=== PATIENT | female | born 1995 | race American Indian/Alaskan Native ===

== ENCOUNTER 2019-05-08 08:28 | Inpatient (IN) | payer MEDICAID ==
[2019-05-08] MEDS ORDERED: SUBLIMAZE IV ONE (14:52)
[2019-05-08] MEDS ORDERED: LACTATED RINGERS 1,000 ML IV ONE (14:52)
[2019-05-08] MEDS ORDERED: PITOCin/NS 20 UNIT/1000ML DRIP 20 UNITS/1,000 ML BAG IV SCH (15:00)
[2019-05-08] MEDS: LACTATED RINGERS 1,000 ML IV SCH ×2 (15:25→17:11)
[2019-05-08 15:29] LABS: Hematocrit 38.2 % (30.3-42.9); Hemoglobin 12.8 gm/dl (10.1-14.3); Mean Corpuscular HGB Conc 34 % (30-34); Mean Corpuscular Volume 84 fl (79-97); Platelet Count 186 K/mm3 (140-440); Red Blood Count 4.55 M/mm3 (3.65-5.03); Red Cell Distribution Width 13.8 % (13.2-15.2)
[2019-05-08] MEDS ORDERED: MARCAINE 0.25% INFILTRATI ONE (18:34)
[2019-05-08] MEDS ORDERED: PITOCin/NS 30 UNIT/500ML 30,000 MILLIUNITS/500 ML BAG IV ONE (19:21)
[2019-05-08] MEDS ORDERED: NARCAN 2 MG/2 ML IV PRN (19:24)
--- NOTE | 2019-05-08 19:25 | Anesthesia Consultation ---
Anesthesia Consult and Med Hx - Airway Anesthetic Teeth Evaluation: Good ROM Head & Neck: Adequate Mental/Hyoid Distance: Adequate Mallampati Class: Class I Intubation Access Assessment: Good - Pulmonary Exam CTA: Yes - Cardiac Exam Cardiac Exam: RRR - Pre-Operative Health Status ASA Pre-Surgery Classification: ASA2 Proposed Anesthetic Plan: Epidural - Pulmonary Hx Asthma: No COPD: No Hx Pneumonia: No - Cardiovascular System Hx Hypertension: No - Central Nervous System Hx Seizures: No Hx Psychiatric Problems: No - Endocrine Hx Renal Disease: No Hx End Stage Renal Disease: No Hx Hypothyroidism: No Hx Hyperthyroidism: No - Hematic Hx Anemia: No Hx Sickle Cell Disease: No
--- NOTE | 2019-05-08 19:25 | Anesthesia Day of Surgery ---
Anesthesia Day of Surgery - Day of Surgery Patient Examined: Yes Patient H&P Reviewed: Yes Patient is NPO: Yes Beta Blockers: No Cardiac Clearance: No Pulmonary Clearance: No Oscar's Test: N/A
[2019-05-08] MEDS ORDERED: fentaNYL-BUPIV 2 MCG/ML-0.125% 200 MCG/100 ML BAG EPIDURAL SCH (20:00)
--- NOTE | 2019-05-08 21:16 | History and Physical Report ---
History of Present Illness Date of examination: 05/08/19 Date of admission: 05/08/19 14:39 Chief complaint: I'm having contractions History of present illness: Pt is a 23 year old who presents in active labor with contractions and EDC 05/08/19. She has had an uncomplicated course and entered care at 13 weeks. She is GBS negative. Past History Past Medical History: no pertinent history Past Surgical History: no surgical history Social history: single - Obstetrical History Expected Date of Delivery: 05/08/19 Actual Gestation: 40 Week(s) 0 Day(s) : 1 Medications and Allergies Allergies Allergy/AdvReac Type Severity Reaction Status Date / Time No Known Allergies Allergy Verified 05/08/19 08:34 Home Medications Medication Instructions Recorded Confirmed Last Taken Type Vit-Fe Fumar-FA [ 1 tab PO QDAY 05/08/19 05/08/19 05/07/19 13:00 History Vitamin] 1 Active Meds: Active Medications Ephedrine Sulfate (Ephedrine Sulfate) 10 mg IV Q5M PRN PRN Reason: Blood Pressure Ephedrine Sulfate (Ephedrine Sulfate) 10 mg IV Q2M PRN PRN Reason: Hypotension Lactated Ringer's (Lactated Ringers) 1,000 mls @ 125 mls/hr IV DIRECT KIMBERLY Last Admin: 05/08/19 17:11 Dose: 125 mls/hr Documented by: Oxytocin/Sodium Chloride (Pitocin/Ns 20 Unit/1000ml Drip) 20 units in 1,000 mls @ 0 mls/hr IV DIRECT KIMBERLY Oxytocin/Sodium Chloride (Pitocin/Ns 30 Unit/500ml) 30,000 milliunits in 500 mls @ 4 mls/hr IV DIRECT ONE; Protocol Stop: 05/14/19 00:20 Last Admin: 05/08/19 19:51 Dose: 4 milliunits/min, 4 mls/hr Documented by: Fentanyl/Bupivacaine/Sodium Chlor (Fentanyl-Bupiv 2 Mcg/Ml-0.125%) 200 mcg in 100 mls @ 12 mls/hr EPIDURAL TITR KIMBERLY; Protocol Last Admin: 05/08/19 19:52 Dose: 12 mls/hr Documented by: Naloxone HCl (Narcan 2 Mg/2 Ml) 0.2 mg IV Q5M PRN PRN Reason: Respiratory sedation Review of Systems All systems: negative Gastrointestinal: abdominal pain Genitourinary: contractions - Vital Signs Vital signs: Vital Signs Pulse Pulse Ox 84 97 05/08/19 08:51 05/08/19 08:51 Temp Pulse Resp BP Pulse Ox 97.9 F 115 H 18 140/67 100 05/08/19 14:50 05/08/19 21:04 05/08/19 14:50 05/08/19 21:04 05/08/19 20:35 - Physical Exam Breasts: Cardiovascular: Regular rate, Normal S1, Normal S2 Lungs: Positive: Clear to auscultation, Normal air movement Abdomen: Positive: normal appearance, soft, normal bowel sounds. Negative: distention, tenderness Vulva: both: normal Vagina: Positive: normal moisture. Negative: discharge Cervix: Negative: lesion, discharge Uterus: Positive: normal size, normal contour Adnexa: both: normal Anus/Rectum: Positive: normal perianal skin, heme negative. Negative: rectal mass, hemorrhoids Extremities: Deep Tendon Reflex Grade: Normal +2 - Obstetrical FHR: auscultation normal Uterine Contraction Monitor Mode: External Cervical Dilatation: 5 Cervical Effacement Percentage: 90 station: 0 Uterine Contraction Pattern: Regular Uterine Tone Measurement Phase: Contraction Uterine Contraction Intensity: Moderate Results Result Diagrams: 05/08/19 14:35 Abnormal lab results 05/08/19 Range/Units 14:35 WBC 11.3 H (4.5-11.0) K/mm3 All other labs normal. Assessment and Plan IUP at 40 weeks in active labor. Will admit to L&D. [facility]Om when able. Patient may have an epidural. Anticipate .
--- NOTE | 2019-05-08 21:22 | Procedure Note ---
OB Delivery Note - Delivery Date of Delivery: 05/08/19 Surgeon: CK RAZA Estimated blood loss: 200cc - Vaginal Delivery presentation: vertex Delivery position: OA Intrapartum events: none Delivery induction: none Delivery augmentation: rupture of membranes Delivery monitor: external FHT, external uterine Route of delivery: Delivery placenta: spontaneous Delivery cord: 3 umbilical vessels Episiotomy: none Delivery laceration: vaginal side wall Delivery repair: vicryl Anesthesia: epidural Delivery comments: Viable male delivered over intact perineum with no nuchal. Infant placed on maternal abdomen for skin to skin. Placenta delivered spontaneously and intact with 3vc after cord done pulsing. Small vaginal laceration repaired with single suture of 3.0 vicryl. Excellent hemostasis. pt tolerated procedure well. - Infant A at 1 minute: 8 at 5 minutes: 9 Infant Gender: Male (6 pounds 13 ounces)
[2019-05-08] MEDS ORDERED: MILK OF MAGNESIA PO PRN (23:13)
[2019-05-08] MEDS ORDERED: DULCOLAX PR PRN (23:13)
[2019-05-08] MEDS ORDERED: NORCO 5/325 PO PRN (23:13)
[2019-05-08] MEDS ORDERED: BENADRYL PO PRN (23:13)
[2019-05-08] MEDS ORDERED: LANSINOH TP PRN (23:13)
[2019-05-08] MEDS ORDERED: ZOFRAN IV PRN (23:13)
[2019-05-08] MEDS ORDERED: PHENERGAN PO PRN (23:13)
[2019-05-08] MEDS ORDERED: SODIUM CHLORIDE FLUSH SYRINGE 10 ML IV PRN (23:13)
[2019-05-08] MEDS ORDERED: TYLENOL PO PRN (23:13)
[2019-05-08] MEDS ORDERED: TUCKS PAD TP PRN (23:13)
[2019-05-08] MEDS ORDERED: PHENERGAN PR PRN (23:13)
[2019-05-09] MEDS: IBUPROFEN PO SCH ×4 (00:16→20:54)
[2019-05-09] MEDS ORDERED: BOOSTRIX IM ONE (06:00)
[2019-05-09] MEDS: COLACE PO SCH ×2 (10:12→20:53)
[2019-05-09 10:49] LABS: Hematocrit 30.5 % (30.3-42.9); Hemoglobin 10.4 gm/dl (10.1-14.3)
--- NOTE | 2019-05-09 15:51 | Progress Note ---
Assessment and Plan PPD 1 s/p . Doing well. Plan for discharge on tomorrow. Subjective - Subjective Date of service: 05/09/19 Interval history: Pt is a 23 year old who presents in active labor with contractions and EDC 05/08/19. She has had an uncomplicated course and entered care at 13 weeks. She is GBS negative. Patient reports: appetite normal, voiding normally, pain well controlled, ambulating normally : doing well Objective - Vital Signs Latest vital signs: Vital Signs Temp Pulse Resp BP BP Pulse Ox 05/09/19 12:20 97.7 F 86 18 106/63 05/09/19 08:35 97.9 F 86 18 104/58 05/09/19 03:15 98.9 F 95 H 18 105/52 96 05/08/19 23:18 99.1 F 105 H 20 124/68 94 05/08/19 22:33 101 H 122/59 05/08/19 22:18 109 H 136/61 05/08/19 22:05 98.3 F 05/08/19 22:03 101 H 127/62 05/08/19 21:49 109 H 125/65 05/08/19 21:34 106 H 131/72 05/08/19 21:18 112 H 146/75 05/08/19 21:04 115 H 140/67 05/08/19 20:45 118 H 119/76 05/08/19 20:35 102 H 100 05/08/19 20:30 107 H 100 05/08/19 20:25 111 H 98 05/08/19 20:20 104 H 100 05/08/19 20:15 109 H 98 05/08/19 20:10 114 H 123/63 99 05/08/19 20:05 110 H 126/61 100 05/08/19 20:00 114 H 134/63 100 05/08/19 19:55 116 H 119/61 100 05/08/19 19:50 121 H 120/63 100 05/08/19 19:46 120 H 132/70 05/08/19 19:45 115 H 100 05/08/19 19:40 107 H 131/73 100 05/08/19 19:35 116 H 119/66 100 05/08/19 19:30 124 H 115/58 100 05/08/19 19:25 111 H 128/68 100 05/08/19 19:20 119 H 116/60 100 05/08/19 19:15 111 H 128/64 100 05/08/19 19:10 127 H 117/60 100 05/08/19 19:05 123 H 110/56 100 05/08/19 19:01 112 H 128/73 05/08/19 19:00 103 H 131/72 100 05/08/19 18:57 121 H 123/57 05/08/19 18:55 110 H 79/45 100 05/08/19 18:52 98 H 105/55 05/08/19 18:51 96 H 113/57 05/08/19 18:50 99 H 98 05/08/19 18:45 133 H 98/52 98 05/08/19 18:40 112 H 134/74 98 05/08/19 18:38 108 H 131/74 05/08/19 18:36 107 H 124/73 05/08/19 18:30 103 H 125/58 05/08/19 18:25 104 H 126/62 05/08/19 16:12 90 119/65 Intake and Output 05/09/19 05/09/19 05/09/19 06:59 14:59 22:59 Intake Total 600 720 Output Total 900 600 Balance -300 120 Intake: Oral 720 Intake, Free Water 600 Output: Urine 900 600 Void 900 600 Other: Total, Intake Amount 360 Total, Output Amount 900 600 # Voids Void 1 - Exam Breasts: Present: deferred Cardiovascular: Present: Regular rate, Normal S1, Normal S2 Lungs: Present: Clear to auscultation Abdomen: Present: normal appearance, soft, normal bowel sounds Vulva: both: normal Uterus: Present: normal, firm Extremities: Present: normal
--- NOTE | 2019-05-09 15:58 | Discharge Summary ---
Providers - Providers Date of Admission: 05/08/19 14:39 Date of discharge: 05/10/19 Attending physician: CK RAZA Primary care physician: CK RAZA Hospitalization Reason for admission: active labor Delivery: Episiotomy: none Other procedures: none Discharge diagnosis: IUP at term delivered baby: male Hospital course: unremarkable Condition at discharge: Good Disposition: DC-01 TO HOME OR SELFCARE Plan - Discharge Medications Prescriptions: Ibuprofen [Motrin 600 MG tab] 600 mg PO Q6HR #40 tablet HYDROcodone/APAP 5-325 [Bedford 5-325 mg TAB] 2 each PO Q6H PRN #20 tablet PRN Reason: Pain, Moderate (4-6) - Provider Discharge Summary Activity: routine, no sex for 6 weeks, no heavy lifting 4 weeks, no strenuous exercise Diet: routine Instructions: routine Additional instructions: [] Smoking cessation referral if applicable(refer to patient education folder for contact #) [] Refer to [facility] Call your doctor immediately for: * Fever > 100.5 * Heavy vaginal bleeding ( >1 pad per hour) * Severe persistent headache * Shortness of breath * Reddened, hot, painful area to leg or breast * Drainage or odor from incision. * Keep incision clean and dry at all times and follow doctor's instructions regarding bathing/showering - Follow up plan Follow up: CK RAZA MD [Primary Care Provider] - 6 Weeks
[2019-05-10] MEDS: COLACE PO SCH ×2 (10:05→22:03)
[2019-05-10] MEDS: IBUPROFEN PO SCH (12:00)
[2019-05-10 18:22] VITALS: BP 116/60
== END 2019-05-10 23:41 | disposition home or self-care (01) | DRG 775 ==
LOC: TRG 08:28 → LD 14:39 → OB 23:10
PROVIDERS: ADMIT Obstetrics & Gynecology; ATTEND Obstetrics & Gynecology
PROC: 10E0XZZ Delivery of Products of Conception, External Approach (ICD-10-PCS; principal; 2019-05-08)
PROC: 0UQGXZZ Repair Vagina, External Approach (ICD-10-PCS; 2019-05-08)
PROC: 3E0R3BZ Introduction of Anesthetic Agent into Spinal Canal, Percutaneous Approach (ICD-10-PCS; 2019-05-08)
PROC: 00HU33Z Insertion of Infusion Device into Spinal Canal, Percutaneous Approach (ICD-10-PCS; 2019-05-08)
DX: O71.4 Obstetric high vaginal laceration alone (principal); Z3A.40 40 weeks gestation of pregnancy; Z37.0 Single live birth
CPT/HCPCS: 36415; 59025; 85014; 85018; 85027; 86592; 86850; 86900; 86901; 90471; 90715; G0378; J2590; J3010; J7120